=== PATIENT | female | born 1945 | race Caucasian/White ===

== ENCOUNTER 2022-01-20 20:32 | Emergency (ER) | payer MEDICARE, OTHER ==
[~2022-01-20] VITALS: Ht 160 cm; Wt 77.1 kg
== END 2022-01-20 21:46 | disposition home or self-care (01) ==
LOC: ER 20:32
DX: S61.402A Unspecified open wound of left hand, initial encounter (principal); X58.XXXA Exposure to other specified factors, initial encounter
CPT/HCPCS: 90471; 90714; 99282-25

== ENCOUNTER 2022-05-04 12:33 | Day surgery (SDC) | payer MEDICARE, OTHER ==
[~2022-05-04] VITALS: Ht 160 cm; Wt 76.4 kg
[~2022-05-04 12:33] MED LIST: Aspir 8181 MG PO; FLONASE ALLERG9.9 M2; LEVOTHYROXINE PO; VENLAFAXINE HCL75 M1 PO
[2022-05-04] MEDS ORDERED: EUTHYROX137 MC1 (12:51)
== END 2022-05-04 15:29 | disposition home or self-care (01) ==
LOC: ORSCSDS 12:33
PROVIDERS: Surgery
PROC: 0DBM8ZX Excision of Descending Colon, Via Natural or Artificial Opening Endoscopic, Diagnostic (ICD-10-PCS; principal; 2022-05-04 13:45)
PROC: 0DBL8ZX Excision of Transverse Colon, Via Natural or Artificial Opening Endoscopic, Diagnostic (ICD-10-PCS; principal; 2022-05-04 13:45)
PROC: 0DB78ZX Excision of Stomach, Pylorus, Via Natural or Artificial Opening Endoscopic, Diagnostic (ICD-10-PCS; principal; 2022-05-04 13:45)
PROC: 0DB98ZX Excision of Duodenum, Via Natural or Artificial Opening Endoscopic, Diagnostic (ICD-10-PCS; principal; 2022-05-04 13:45)
PROC: 3E0H8KZ Introduction of Other Diagnostic Substance into Lower GI, Via Natural or Artificial Opening Endoscopic (ICD-10-PCS; principal; 2022-05-04 13:45)
DX: R13.12 Dysphagia, oropharyngeal phase (principal); K21.9 Gastro-esophageal reflux disease without esophagitis; Z12.11 Encounter for screening for malignant neoplasm of colon; D12.3 Benign neoplasm of transverse colon; D12.4 Benign neoplasm of descending colon; K29.70 Gastritis, unspecified, without bleeding; K44.9 Diaphragmatic hernia without obstruction or gangrene; E03.9 Hypothyroidism, unspecified; Z79.899 Other long term (current) drug therapy
CPT/HCPCS: 88305; 88342; J2704; J7120

== ENCOUNTER 2023-06-20 10:02 | Day surgery (SDC) | payer OTHER ==
[~2023-06-20] VITALS: Ht 160 cm; Wt 79.1 kg
[~2023-06-20 10:02] MED LIST changes: +EUTHYROX137 MC1
[2023-06-20] MEDS ORDERED: ERGO400 (11:28)
[2023-06-20] MEDS ORDERED: METAMUCIL POWD798 GM (11:29)
--- NOTE | 2023-06-20 14:36 | NUR ---
06/20/23 1436 Camila Zamarripa TOTAL PROPOFOL GIVEN 1080MG. HAD TO DOCUMENT ALL DOSES GIVEN AFTER 1344 ON PAPER DOWNTIME SEDATION FLOWSHEET BECAUSE ELECTRONIC MAR DID NOT HAVE ANY ADDITIONAL PAGES.
[2023-06-20 14:47] VITALS: BP 156/81
--- NOTE | 2023-06-20 16:07 | NUR ---
06/20/23 1607 Zeus Booker PT REPORTS SYSTOLIC BLOOD PRESSURE IS NORMALLY 120'S AT HOME. PT ADVISED TO MONITOR BLOOD PRESSURE AT HOME AND FOLLOW UP WITH PCP, IF IT DOES NOT RETURN TO HER NORMAL LEVEL.
== END 2023-06-20 15:45 | disposition home or self-care (01) ==
LOC: ORSCSDS 10:02
PROVIDERS: Surgery
PROC: 0DBM8ZX Excision of Descending Colon, Via Natural or Artificial Opening Endoscopic, Diagnostic (ICD-10-PCS; principal; 2023-06-20 12:00)
PROC: 0DBL8ZX Excision of Transverse Colon, Via Natural or Artificial Opening Endoscopic, Diagnostic (ICD-10-PCS; principal; 2023-06-20 12:00)
PROC: 0DBK8ZX Excision of Ascending Colon, Via Natural or Artificial Opening Endoscopic, Diagnostic (ICD-10-PCS; principal; 2023-06-20 12:00)
DX: Z86.010 Personal history of colon polyps (principal); D12.2 Benign neoplasm of ascending colon; D12.3 Benign neoplasm of transverse colon; D12.4 Benign neoplasm of descending colon; K64.4 Residual hemorrhoidal skin tags; K21.9 Gastro-esophageal reflux disease without esophagitis; E03.9 Hypothyroidism, unspecified; F32.A Depression, unspecified; F41.9 Anxiety disorder, unspecified; Z79.899 Other long term (current) drug therapy; G47.33 Obstructive sleep apnea (adult) (pediatric)
CPT/HCPCS: 82947; 88305; J2405; J2704; J7120

== ENCOUNTER 2023-08-12 09:05 | Day surgery (SDC) | payer OTHER ==
[~2023-08-12] VITALS: Ht 160 cm; Wt 83.2 kg
[~2023-08-12 09:05] MED LIST changes: +ERGO400; +METAMUCIL POWD798 GM
--- NOTE | 2023-08-12 11:25 | NUR ---
08/12/23 Marcy5 Edith Lomeli PT LAYING LEFT LATERAL ON JUDGE BAG WITH PILLOWS BETWEEN KNEES AND ARMS TWO SAFETY STRAPS SECURE THE PT'S BODY ON BED AND ARM IS SECURED WITH A STRAP TO ARM BOARD. GELPAD PAD THE FEET AND ANKLES
[2023-08-12 12:01] VITALS: BP 150/77
--- NOTE | 2023-08-12 12:51 | NUR ---
08/12/23 1251 Zeus Booker IV REMOVED INTACT. SITE WNL.
== END 2023-08-12 12:45 | disposition home or self-care (01) ==
LOC: ORSCSDS 09:05
PROVIDERS: Surgery
PROC: 0JB70ZX Excision of Back Subcutaneous Tissue and Fascia, Open Approach, Diagnostic (ICD-10-PCS; principal; 2023-08-12 10:15)
DX: L72.0 Epidermal cyst (principal); K21.9 Gastro-esophageal reflux disease without esophagitis; J45.909 Unspecified asthma, uncomplicated; Z79.899 Other long term (current) drug therapy; E03.9 Hypothyroidism, unspecified; E11.9 Type 2 diabetes mellitus without complications; F41.8 Other specified anxiety disorders
CPT/HCPCS: 88304; J2704; J2795; J3010

== ENCOUNTER 2025-02-20 19:13 | Emergency (ER) | payer OTHER ==
[~2025-02-20] VITALS: Ht 160 cm; Wt 77.1 kg
[~2025-02-20 19:13] MED LIST changes: +ALBU90OI; +LORA10ER; +MONT10T
[2025-02-20 19:19] VITALS: BP 154/72
[2025-02-20] MEDS ORDERED: Clotrimazole 1% Cream 15 GM Tube TOP ONE (20:20)
[2025-02-20] MEDS ORDERED: Trimethoprim/Sulfamethoxazole DS Tab PO ONE (20:20)
[2025-02-20] MEDS ORDERED: BACTRIM DS TAB1 EAC1 PO (20:21)
[2025-02-20] MEDS ORDERED: ALEVAZOL56.7 G1 TOP (20:21)
== END 2025-02-20 20:53 | disposition home or self-care (01) ==
LOC: ER 19:13
DX: L30.4 Erythema intertrigo (principal); L25.8 Unspecified contact dermatitis due to other agents; Z88.8 Allergy status to other drugs, medicaments and biological substances; Z79.82 Long term (current) use of aspirin; Z79.899 Other long term (current) drug therapy
CPT/HCPCS: 99282; A9270